=== PATIENT | male | born 1980 | race Caucasian/White ===

== ENCOUNTER 2016-09-22 21:19 | Inpatient (IN) | payer MEDICAID ==
[~2016-09-22] VITALS: Ht 180.3 cm; Wt 108.8 kg
[2016-09-23 00:18] VITALS: BP 116/71
[2016-09-23] MEDS: ZOLPIDEM TARTRATE 10 MG TABLET PO PRN ×2 (00:28→20:55)
[2016-09-23 07:59] LABS: BASOPHILS # (AUTO) 0.03 K/uL (0.00-0.20); BASOPHILS % (AUTO) 0.4 % (0.0-2.0); EOSINOPHILS # (AUTO) 0.21 K/uL (0.00-0.70); EOSINOPHILS % (AUTO) 2.89 % (1.0-6.0); HEMATOCRIT 44.2 % (41-53); HEMOGLOBIN 14.9 g/dL (13.5-17.5); LYMPHOCYTES # (AUTO) 2.1 K/uL (1.0-4.8); LYMPHOCYTES % (AUTO) 28.5 % (22.0-44.0); MEAN CORPUSCULAR HEMOGLOBIN 31.4 pg (26.0-34.0); MEAN CORPUSCULAR HGB CONC 33.7 G/dL (31.0-37.0); MEAN CORPUSCULAR VOLUME 93 fL (80-100); MONOCYTES # (AUTO) 0.6 K/uL (0.1-1.0); MONOCYTES % (AUTO) 8.1 % (2.0-9.0); NEUTROPHILS # (AUTO) 4.3 K/uL (1.8-7.7); NEUTROPHILS % (AUTO) 60.1 % (40.0-70.0); PLATELET COUNT (AUTO) 295 K/uL (150-450); RED BLOOD CELL COUNT(AUTO) 4.74 MIL/uL (4.50-5.90); RED CELL DISTRIBUTION WIDTH 13.9 % (11.5-14.5); WHITE BLOOD COUNT (AUTO) 7.2 K/uL (4.5-11.0)
[2016-09-23] MEDS ORDERED: PETROLATUM,WHITE 71 GM JELLY TP PRN (08:00)
[2016-09-23] MEDS ORDERED: ONDANSETRON HCL 4 MG TABLET PO PRN (08:00)
[2016-09-23] MEDS ORDERED: BACITRACIN 28.4 GM OINTMENT TP PRN (08:00)
[2016-09-23] MEDS ORDERED: MAG HYDROX/AL HYDROX/SIMETH ES 30 ML SUSPENSION UDCUP PO PRN (08:00)
[2016-09-23] MEDS ORDERED: ACETAMINOPHEN 325 MG TABLET PO PRN (08:00)
[2016-09-23] MEDS ORDERED: LOPERAMIDE HCL 2 MG CAPSULE PO PRN (08:00)
[2016-09-23] MEDS ORDERED: ALBUTEROL SULFATE HFA 90 MCG/PUFF 8 GM INHALER IH PRN (08:00)
[2016-09-23] MEDS ORDERED: CloNIDine HCL 0.1 MG TABLET PO PRN (08:00)
[2016-09-23] MEDS ORDERED: MAGNESIUM HYDROXIDE SUSPENSION 30 ML UDCUP PO PRN (08:00)
[2016-09-23] MEDS ORDERED: IBUPROFEN 600 MG TABLET PO PRN (08:00)
[2016-09-23] MEDS ORDERED: BENZOCAINE/MENTHOL LOZENGE MM PRN (08:00)
[2016-09-23 08:02] LABS: HEMOGLOBIN A1C 5.5 % (4.5-6.2)
[2016-09-23 08:05] VITALS: BP 117/71
[2016-09-23 08:23] LABS: ALANINE AMINOTRANSFERASE 24 U/L (12-78); ALBUMIN 3.8 g/dL (3.4-5.0); ANION GAP 8 mmol/L (8-16); ASPARTATE AMINOTRANSFERASE 11 U/L (15-37); BILIRUBIN,TOTAL 0.2 mg/dL (0.1-1.0); CALCIUM, TOTAL 8.8 mg/dL (8.8-10.5); CARBON DIOXIDE 27 mmol/L (22-29); CHLORIDE 102 mmol/L (98-107); CHOL/HDL RATIO 5.1 (4.2-7.3); CREATININE 1.02 mg/dL (0.60-1.30); GLOMERULAR FILTR. RATE CALC > 60 mL/min (>60); POTASSIUM 3.6 mmol/L (3.5-5.1); SODIUM SERUM 137 mmol/L (136-145); THYROID STIMULATING HORMONE 13.45 uIU/mL (0.36-3.74); TOTAL PROTEIN, SERUM 7.4 g/dL (6.4-8.2); UREA NITROGEN, BLOOD 12 mg/dL (7-18)
[2016-09-23] MEDS: FISH OIL/OMEGA-3 FATTY ACIDS 500 MG CAPSULE PO SCH (10:29)
[2016-09-23 16:00] VITALS: BP 108/63
[2016-09-23] MEDS: LORazepam 2 MG TABLET PO PRN ×2 (16:49→21:35)
[2016-09-23] MEDS: HALOPERIDOL 5 MG TABLET PO PRN (21:35)
[2016-09-24] MEDS: HALOPERIDOL 5 MG TABLET PO PRN (01:29)
[2016-09-24] MEDS: LORazepam 2 MG TABLET PO PRN ×3 (01:30→16:31)
[2016-09-24 01:36] VITALS: BP 119/77
[2016-09-24] MEDS: LEVOTHYROXINE SODIUM 100 MCG TABLET PO SCH (06:47)
[2016-09-24] MEDS ORDERED: CITALOPRAM HYDROBROMIDE 20 MG TABLET PO SCH (09:00)
[2016-09-24 09:06] VITALS: BP 114/61
[2016-09-24] MEDS: FISH OIL/OMEGA-3 FATTY ACIDS 500 MG CAPSULE PO SCH (09:44)
[2016-09-24 16:37] VITALS: BP 124/71
[2016-09-24] MEDS: QUEtiapine FUMARATE 200 MG TABLET PO SCH (20:41)
[2016-09-25] MEDS: LEVOTHYROXINE SODIUM 100 MCG TABLET PO SCH (06:44)
[2016-09-25 07:20] VITALS: BP 118/73
[2016-09-25 08:53] VITALS: BP 121/79
[2016-09-25] MEDS: FISH OIL/OMEGA-3 FATTY ACIDS 500 MG CAPSULE PO SCH (09:02)
[2016-09-25] MEDS: BuPROPion HCL XL 150 MG ER TABLET PO SCH (09:02)
[2016-09-25] MEDS: LORazepam 2 MG TABLET PO PRN ×2 (14:34→19:33)
[2016-09-25 16:35] VITALS: BP 126/79
[2016-09-25] MEDS: HALOPERIDOL 5 MG TABLET PO PRN (16:44)
[2016-09-25] MEDS: QUEtiapine FUMARATE 200 MG TABLET PO SCH (21:09)
[2016-09-26 06:28] VITALS: BP 138/64
[2016-09-26] MEDS: LEVOTHYROXINE SODIUM 100 MCG TABLET PO SCH (06:50)
[2016-09-26 08:10] VITALS: BP 127/74
[2016-09-26] MEDS: FISH OIL/OMEGA-3 FATTY ACIDS 500 MG CAPSULE PO SCH (09:19)
[2016-09-26] MEDS: BuPROPion HCL XL 150 MG ER TABLET PO SCH (09:19)
[2016-09-26] MEDS: LORazepam 2 MG TABLET PO PRN ×3 (10:29→21:12)
[2016-09-26] MEDS: HALOPERIDOL 5 MG TABLET PO PRN ×3 (12:29→21:12)
[2016-09-26 16:00] VITALS: BP 123/80
[2016-09-26] MEDS: QUEtiapine FUMARATE 200 MG TABLET PO SCH (20:40)
[2016-09-26] MEDS: ZOLPIDEM TARTRATE 10 MG TABLET PO PRN (20:41)
[2016-09-27] VITALS (9 sets, daily range): BP systolic 103–126; BP diastolic 60–77
[2016-09-27] MEDS: LEVOTHYROXINE SODIUM 100 MCG TABLET PO SCH (06:13)
[2016-09-27] MEDS: FISH OIL/OMEGA-3 FATTY ACIDS 500 MG CAPSULE PO SCH (08:51)
[2016-09-27] MEDS: BuPROPion HCL XL 150 MG ER TABLET PO SCH (08:51)
[2016-09-27] MEDS: LORazepam 2 MG TABLET PO PRN ×2 (11:03→16:07)
[2016-09-27] MEDS: HALOPERIDOL 5 MG TABLET PO PRN ×2 (12:18→19:48)
[2016-09-27] MEDS: QUEtiapine FUMARATE 200 MG TABLET PO SCH (20:03)
[2016-09-27] MEDS: ZOLPIDEM TARTRATE 10 MG TABLET PO PRN (21:11)
[2016-09-28 06:13] VITALS: BP 103/62
[2016-09-28] MEDS: LEVOTHYROXINE SODIUM 100 MCG TABLET PO SCH (06:52)
[2016-09-28 08:12] VITALS: BP 111/60
[2016-09-28 08:36] VITALS: BP 110/68
[2016-09-28] MEDS: FISH OIL/OMEGA-3 FATTY ACIDS 500 MG CAPSULE PO SCH (09:24)
[2016-09-28] MEDS: BuPROPion HCL XL 150 MG ER TABLET PO SCH (09:24)
[2016-09-28] MEDS: LORazepam 2 MG TABLET PO PRN ×2 (09:25→13:30)
[2016-09-28] MEDS: HALOPERIDOL 5 MG TABLET PO PRN (14:05)
[2016-09-28] MEDS ORDERED: OMEG-12 PO (14:54)
[2016-09-28] MEDS ORDERED: BUPR-93 PO (14:54)
[2016-09-28] MEDS ORDERED: QUET200T PO (14:54)
[2016-09-28] MEDS ORDERED: LEVO100 PO (14:54)
== END 2016-09-28 18:12 | disposition home or self-care (01) | DRG 754 ==
LOC: EDSTATUS 21:23 → B2S 23:43 → EDSTATUS 23:48 → B2S 09-23 00:03
PROVIDERS: ADMIT Psychiatry & Neurology Psychiatry; ATTEND Psychiatry & Neurology Psychiatry
DX: F32.9 Major depressive disorder, single episode, unspecified (principal); R45.851 Suicidal ideations; E03.9 Hypothyroidism, unspecified; G47.00 Insomnia, unspecified; F12.10 Cannabis abuse, uncomplicated; E66.9 Obesity, unspecified; E78.5 Hyperlipidemia, unspecified; Z68.33 Body mass index [BMI] 33.0-33.9, adult
CPT/HCPCS: 83036; 84439; 84443